=== PATIENT | female | born 1990 | race Caucasian/White ===

== ENCOUNTER 2016-10-29 13:37 | Emergency (ER) | payer OTHER ==
[2016-10-29 13:44] VITALS: RESP 16; TEMP 98.4
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
[2016-10-29] MEDS ORDERED: OXYCODONE/APAP 5/325 TAB ONE (14:01)
[2016-10-29] MEDS ORDERED: OXYCODONE/APAP 5/325 TAB PO ONE (14:06)
[2016-10-29 14:38] VITALS: BP 140/82; PULSE 50; O2SAT 97
== END 2016-10-29 14:39 | disposition home or self-care (01) ==
DX: S29.9XXA Unspecified injury of thorax, initial encounter (principal); S27.329A Contusion of lung, unspecified, initial encounter; V49.88XA Car occupant (driver) (passenger) injured in other specified transport accidents, initial encounter; Y92.410 Unspecified street and highway as the place of occurrence of the external cause; Y93.89 Activity, other specified